=== PATIENT | male | born 1990 | race Caucasian/White ===

== ENCOUNTER 2023-02-01 13:49 | Emergency (ER) | payer OTHER ==
[~2023-02-01] VITALS: Ht 188 cm; Wt 97.7 kg
[2023-02-01] MEDS ORDERED: LOSA100T8 PO (14:02)
[2023-02-01] MEDS ORDERED: BOOSTRIX VACCINE (TETANUS/DIPHTH/ACEL. PERTUSSIS) 0.5ML SYR IM ONE (15:30)
[2023-02-01] MEDS ORDERED: CEPHALEXIN 500 MG CAP PO ONE (15:30)
[2023-02-01] MEDS ORDERED: LIDOCAINE 1% MDV 20ML VIAL IM ONE (16:05)
[2023-02-01] MEDS ORDERED: LIDOCAINE 1% MDV 20ML VIAL As Ordered ONE (16:09)
[2023-02-01] MEDS ORDERED: PERCOCET 5MG/325MG TAB PO ONE (17:25)
[2023-02-01] MEDS ORDERED: CEPH500C PO (17:26)
[2023-02-01 17:37] VITALS: BP 131/67
== END 2023-02-01 17:38 | disposition home or self-care (01) ==
LOC: M ED 13:49
DX: S62.635B Displaced fracture of distal phalanx of left ring finger, initial encounter for open fracture (principal); S61.313A Laceration without foreign body of left middle finger with damage to nail, initial encounter; W20.8XXA Other cause of strike by thrown, projected or falling object, initial encounter; Y92.89 Other specified places as the place of occurrence of the external cause; Y93.H3 Activity, building and construction; Y99.0 Civilian activity done for income or pay; I10 Essential (primary) hypertension; Z79.899 Other long term (current) drug therapy; Z23 Encounter for immunization